=== PATIENT | male | born 1965 | race Caucasian/White ===

== ENCOUNTER 2017-10-12 08:29 | Day surgery (SDC) | payer BC, MEDICAID ==
[2017-10-12] MEDS ORDERED: Midazolam 1 MG/ML 2 ML SDV ONE (08:30)
[2017-10-12] MEDS ORDERED: fentaNYL 100 MCG/2 ML SDV ONE (08:30)
[2017-10-12] MEDS ORDERED: Propofol 200 MG/20 ML SDV ONE (08:30)
[2017-10-12] MEDS ORDERED: Sodium Chloride 0.9% 1,000 ML IV SCH (09:30)
--- NOTE | 2017-10-12 11:50 | PROC ---
DATE OF PROCEDURE: 10/12/2017 INDICATION: Noel is a 51-year-old male who comes in for screening colonoscopy because of family history of cancer. The risks and benefits were explained to the patient, was taken to the OR. PROCEDURE IN DETAIL: Anesthesia was given by nurse outpatient physical therapist. During procedure, we used a 2.5 mg of Versed, 2 mL of fentanyl and 200 mg of propofol. The Olympus 180AL scope was used. With a gloved finger, the rectum was examined. The tube was placed in to the rectum and advanced under direct vision. We did get to the cecum with minimal difficulty. Upon retraction of the tube, noted no lesions or ulceration. No abnormality throughout the entire colon. There were a few diverticula noted in the sigmoid colon area. The tube was removed. The patient tolerated the procedure well. PREOPERATIVE DIAGNOSIS: Screening colonoscopy with a strong family history of cancer. POSTOPERATIVE DIAGNOSIS: Normal colon from cecum to rectum except for infrequent diverticula. Routine screening should be done for this gentleman. David Anyaa MD /[id number]
== END 2017-10-12 11:08 | disposition home or self-care (01) ==
LOC: JP.SDS 08:29
PROVIDERS: ATTEND Internal Medicine
DX: Z12.11 Encounter for screening for malignant neoplasm of colon (principal); Z80.0 Family history of malignant neoplasm of digestive organs
CPT/HCPCS: 45378; J2250; J2704; J3010; J7040; J7030

== ENCOUNTER 2021-12-09 06:03 | Day surgery (SDC) | payer BC ==
[2021-12-09] MEDS ORDERED: Sodium Chloride 0.9% 1,000 ML IV SCH (06:30)
[2021-12-09] MEDS ORDERED: fentaNYL 100 MCG/2 ML SDV ONE (07:02)
[2021-12-09] MEDS ORDERED: Propofol 200 MG/20 ML SDV ONE (07:02)
[2021-12-09] MEDS ORDERED: Midazolam 1 MG/ML 2 ML SDV ONE (07:02)
== END 2021-12-09 08:33 | disposition home or self-care (01) ==
LOC: JP.SDS 06:03
PROVIDERS: ATTEND Internal Medicine
DX: Z12.11 Encounter for screening for malignant neoplasm of colon (principal); D12.0 Benign neoplasm of cecum; K21.9 Gastro-esophageal reflux disease without esophagitis; E66.01 Morbid (severe) obesity due to excess calories; Z68.36 Body mass index [BMI] 36.0-36.9, adult
CPT/HCPCS: J2250; J2704; J3010; J7030